=== PATIENT | female | born 1965 | race Caucasian/White ===

== ENCOUNTER → 2016-07-08 | Outpatient (CLI) | payer BC | END | disposition home or self-care (01) | LOC: PCVCIMAG 12:29 | PROVIDERS: ATTEND Internal Medicine Cardiovascular Disease | DX: I10 Essential (primary) hypertension (principal); I35.0 Nonrheumatic aortic (valve) stenosis; R01.1 Cardiac murmur, unspecified | CPT/HCPCS: 93306 ==

== ENCOUNTER → 2018-03-04 | Outpatient (CLI) | payer BC ==
--- NOTE | 2018-03-04 18:26 | PCVCIMAG ---
APPROVED REPORT Study performed: 03/04/2018 13:44:19 EXAM: Comprehensive 2D, Doppler, and color-flow Echocardiogram Patient Location: Echo lab Status: routine BSA: 2.17 HR: 56 bpmBP: 140/92 mmHg Rhythm: Bradycardia Other Information Study Quality: Adequate Risk Factors: Cardiac Risk Factors: HTN Indications Aortic Stenosis 2D Dimensions IVSd: 10.40 (7-11mm)LVOT Diam: 21.00 (18-24mm) LVDd: 44.23 mm PWd: 9.79 (7-11mm)Ascending Ao: 33.88 (22-36mm) LVDs: 33.67 (25-40mm) Left Atrium: 37.45 (27-40mm) Aortic Root: 30.59 mm LV Single Plane 4CH: 40.64 % LV Single Plane 2CH: 57.95 % Biplane EF: 53.6 % Volumes Left Atrial Volume (Systole) Single Plane 4CH: 66.64 mLSingle Plane 2CH: 79.76 mL LA ESV Index: 37.00 mL/m2 Aortic Valve AoV Peak Nathan.: 2.94 m/s AO Peak Gr.: 34.58 mmHgLVOT Max P.49 mmHg AO Mean Gr.: 19.22 mmHgLVOT Mean P.49 mmHg AO V2 Mean: 2.10 m/sLVOT Max V: 1.06 m/s AO V2 VTI: 72.49 cm EDGARD (VTI): 1.26 [id number] V1 VTI: 26.39 cm EDGARD Vmax: 1.25 cm2 Mitral Valve E/A Ratio: 1.4 MV Decel. Time: 197.19 ms MV E Max Nathan.: 0.83 m/s MV A Nathan.: 0.60 m/s MV PHT: 57.18 ms IVRT: 93.43 ms Pulmonary Valve PV Peak Nathan.: 1.03 m/sPV Peak Gr.: 4.23 mmHg Pulmonary Vein P Vein S: 0.57 m/sP Vein A: 0.28 m/s P Vein D: 0.51 m/sP Vein A Dur.: 141.9 msec P Vein S/D Ratio: 1.12 Tricuspid Valve TR Peak Anthan.: 2.63 m/s TR Peak Gr.: 27.70 mmHg Left Ventricle The left ventricle is normal size. There is normal LV segmental wall motion. There is normal left ventricular wall thickness. Left ventricular systolic function is within lower limits of normal. LVEF is 50-55%. The left ventricular diastolic function is normal. Right Ventricle The right ventricle is normal size. The right ventricular systolic function is normal. Atria Left atrium is mildly dilated. The right atrium size is normal. Aortic Valve The aortic valve is moderately calcified. No aortic regurgitation is present. There is mild to moderate valvular aortic stenosis. Calculated aortic valve area is 1.2 cm2 with maximum pressure gradient of 35 mmHg and mean pressure gradient of 19 mmHg. Mitral Valve The mitral valve is normal in structure. Mild mitral regurgitation. No evidence of mitral valve stenosis. Tricuspid Valve The tricuspid valve is normal in structure. Mild tricuspid regurgitation with PAP of 35 mmHg. Pulmonic Valve The pulmonary valve is normal in structure. There is no pulmonic valvular regurgitation. Great Vessels The aortic root is normal in size. IVC is normal in size and collapses >50% with inspiration. Pericardium There is no pericardial effusion. There is no pleural effusion. <Conclusion> The left ventricle is normal size. LVEF is 50-55%. The left ventricular diastolic function is normal. The right ventricle is normal size. Left atrium is mildly dilated. The aortic valve is moderately calcified. There is mild to moderate valvular aortic stenosis. Calculated aortic valve area is 1.2 cm2 with maximum pressure gradient of 35 mmHg and mean pressure gradient of 19 mmHg. Mild mitral regurgitation. Mild tricuspid regurgitation with PAP of 35 mmHg. The aortic root is normal in size. There is no pericardial effusion.
== END | disposition home or self-care (01) ==
LOC: PCVCIMAG 15:32
PROVIDERS: ATTEND Internal Medicine Cardiovascular Disease
DX: I08.3 Combined rheumatic disorders of mitral, aortic and tricuspid valves (principal); I10 Essential (primary) hypertension; E78.5 Hyperlipidemia, unspecified
CPT/HCPCS: 93306